=== PATIENT | male | born 1975 | race Caucasian/White ===

== ENCOUNTER 2022-12-28 12:55 | Inpatient (IN) ==
[2022-12-28] MEDS ORDERED: NS 0.9% 1000 ml BAG 1,000 ML IV ONE (13:21)
[2022-12-28] MEDS ORDERED: Thiamine 100 MG/ML 2 ml VIAL 100 MG, Folic Acid IV 1 MG, Multiple Vitamin IV ADULT 10 M... IV ONE ×2 (13:21→13:48)
[2022-12-28] MEDS ORDERED: LORazepam 2 mg VIAL 1 ml IV PUSH ONE (13:23)
[2022-12-28] MEDS ORDERED: Lorazepam PYXIS KEY PRN (13:23)
[2022-12-28 15:23] LABS: ALT 118 U/L (7-52); Albumin 4.5 g/dL (3.2-5.2); Albumin/Globulin Ratio 1.5 (1-3); Alcohol, S 332 mg/dL (<13); Alkaline Phosphatase 87 U/L (35-149); Blood Urea Nitrogen 9 mg/dL (6-24); CO2 Carbon Dioxide 25 mmol/L (22-32); Calcium 8.9 mg/dL (8.6-10.3); Chloride 103 mmol/L (101-111); Creatine Kinase 433 U/L (10-223); Creatinine, Serum 0.77 mg/dL (0.67-1.17); Globulin 3.1 g/dL (2-4); Glucose 70 mg/dL (70-100); Lipase 102 U/L (11.0-82.0); Magnesium 2.3 mg/dL (1.9-2.7); Sodium 140 mmol/L (135-145); Total Protein 7.6 g/dL (6.4-8.9); eGFR CKD-EPI 109.7 (>60)
[2022-12-28 15:36] LABS: Anion Gap 12 mmol/L (2-11)
[2022-12-28 17:02] LABS: ABS Eosinophils 0.1 10^3/ul (0-0.6); ABS Monocytes 0.3 10^3/ul (0-0.8); ABS Neutrophils 1.8 10^3/ul (1.5-7.7); Eosinophil % 3.5 %; Hematocrit 41 % (42-52); Hemoglobin 13.6 g/dL (14.0-18.0); Lymphocyte % 31.1 %; Mean Corpuscular HGB Conc 33 g/dL (31-36); Mean Corpuscular Hemoglobin 34 pg (27-31); Mean Corpuscular Volume 102 fL (80-94); Mean Platelet Volume 8.6 fL (7.4-10.4); Nucleated Red Blood Cells % 0.1; Platelet Count 129 10^3/uL (150-450); Red Blood Count 4.04 10^6 /uL (4.18-5.48); Red Cell Distribution Width 15 % (10-15); White Blood Count 3.2 10^3/uL (3.5-10.8)
[2022-12-28 17:30] LABS: Potassium Redraw 3.7 mmol/L (3.5-5.0)
[2022-12-29 06:26] LABS: ABS Eosinophils 0.1 10^3/ul (0-0.6); ABS Lymphocytes 0.7 10^3/ul (1.0-4.8); ABS Monocytes 0.3 10^3/ul (0-0.8); ABS Neutrophils 2.4 10^3/ul (1.5-7.7); Eosinophil % 2.7 %; Hematocrit 39 % (42-52); Hemoglobin 13.1 g/dL (14.0-18.0); Lymphocyte % 18.6 %; Mean Corpuscular HGB Conc 34 g/dL (31-36); Mean Corpuscular Hemoglobin 34 pg (27-31); Mean Corpuscular Volume 102 fL (80-94); Mean Platelet Volume 8.6 fL (7.4-10.4); Platelet Count 118 10^3/uL (150-450); Red Blood Count 3.83 10^6 /uL (4.18-5.48); Red Cell Distribution Width 15 % (10-15); White Blood Count 3.5 10^3/uL (3.5-10.8)
[2022-12-29 06:51] LABS: Calcium 8.6 mg/dL (8.6-10.3); Creatinine, Serum 0.9 mg/dL (0.67-1.17); Potassium 3.8 mmol/L (3.5-5.0); eGFR CKD-EPI 104.7 (>60)
[2022-12-29] MEDS: LORazepam 2 mg VIAL 1 ml IV PUSH SCH ×6 (07:52→23:19)
[2022-12-29] MEDS: Multivitamins/Minerals TAB PO SCH (07:53)
[2022-12-29] MEDS: Nicotine PATCH 21 MG/24 HR PATCH TRANSDERM SCH (17:20)
[2022-12-29] MEDS: Ondansetron ODT 4 mg TAB 4 MG TAB SL PRN (17:34)
[2022-12-30] MEDS: LORazepam 2 mg VIAL 1 ml IV PUSH SCH ×8 (01:29→22:58)
[2022-12-30] MEDS: Ondansetron ODT 4 mg TAB 4 MG TAB SL PRN ×2 (05:08→22:25)
[2022-12-30] MEDS: Nicotine PATCH 21 MG/24 HR PATCH TRANSDERM SCH (07:25)
[2022-12-30] MEDS: Multivitamins/Minerals TAB PO SCH (07:26)
[2022-12-30] MEDS: Nicotine GUM 4MG FRUIT FLAVOR PO PRN (12:07)
[2022-12-31] MEDS: LORazepam 2 mg VIAL 1 ml IV PUSH SCH ×8 (01:27→15:40)
[2022-12-31] MEDS: Nicotine PATCH 21 MG/24 HR PATCH TRANSDERM SCH (07:39)
[2022-12-31] MEDS: Multivitamins/Minerals TAB PO SCH (07:39)
[2022-12-31] MEDS: Nicotine GUM 4MG FRUIT FLAVOR PO PRN (07:45)
[2022-12-31 15:29] VITALS: BP 126/92
== END 2022-12-31 18:00 | disposition left against medical advice (07) | DRG 770 ==
LOC: ED 12:55 → EDHOLD 16:38 → SUATTDRO 16:38 → MEDTELE 21:06
PROVIDERS: ADMIT Internal Medicine; ATTEND Internal Medicine